=== PATIENT | male | born 1945 | race Caucasian/White ===

== ENCOUNTER 2017-12-27 20:03 | Inpatient (IN) | payer MEDICARE, OTHER ==
--- NOTE | 2017-12-27 21:01 | ED ---
General Adult HPI - General Chief complaint: Nausea/Vomiting/Diarrhea Stated complaint: weakness,NV Time Seen by Provider: 12/27/17 21:00 Source: patient, EMS Mode of arrival: EMS Limitations: no limitations - History of Present Illness Initial comments: Carlton is a 72 yo M who presents to the ED today for evaluation of dizziness, nausea and vomiting. She reports that he was seen at an urgent care last week for similar symptoms, however they were transient and resolved with hydration. He reports that he been doing well throughout the rest the week but around 7 AM today he suddenly felt very dizzy. Patient reports any time he moves his head, he feels like the room is spinning around him. He reports that if he lays flat without moving her symptoms resolve. Patient reports that the dizziness is caused him to become very nauseated have multiple episodes of nonbloody nonbilious emesis. Patient reports a mild headache as well as feeling like his left ear is plugged and his hearing is changed. Patient denies any recent fevers, chills, chest pain, palpitations, shortness of breath. He denies any recent illness including runny stuffy nose or nasal congestion. He does have a history of ear problems for which he has eardrops however hasn't been using recently. Patient has no history of cardiovascular disease. He does have diabetes as well as type or lipidemia but no history of hypertension. - Related Data Home Medications Medication Instructions Recorded Confirmed Atorvastatin [Lipitor] 20 mg PO HS 12/27/17 12/28/17 glipiZIDE [Glucotrol] 10 mg PO HS 12/27/17 12/28/17 metFORMIN HCL [Glucophage] 500 mg PO HS 12/27/17 12/28/17 Allergies Allergy/AdvReac Type Severity Reaction Status Date / Time No Known Allergies Allergy Verified 12/28/17 01:12 Review of Systems ROS Statement: Those systems with pertinent positive or pertinent negative responses have been documented in the HPI. ROS Other: All systems not noted in ROS Statement are negative. Past Medical History Past Medical History: Diabetes Mellitus History of Any Multi-Drug Resistant Organisms: None Reported Past Surgical History: Orthopedic Surgery Past Psychological History: No Psychological Hx Reported Smoking Status: Never smoker Past Alcohol Use History: None Reported Past Drug Use History: None Reported - Past Family History Mother Family Medical History: Congestive Heart Failure (CHF) Father Family Medical History: Dementia General Exam - General Exam Comments Initial Comments: GENERAL: Patient is well-developed and well-nourished. Patient is nontoxic and well- hydrated and is in no distress. HENT: Normocephalic, Atraumatic. Neck is soft and supple. No significant lymphadenopathy is noted. Oropharynx is clear. Moist mucous membranes. Neck has full range of motion without eliciting any pain. EYES: The sclera were anicteric and conjunctiva were pink and moist. Extraocular movements were intact and pupils were equal round and reactive to light. Eyelids were unremarkable. Noted to have left beating nystagmus, worse with head turning PULMONARY: Unlabored respirations. Good breath sounds bilaterally. No audible rales rhonchi or wheezing was noted. CARDIOVASCULAR: There is a regular rate and rhythm without any murmurs gallops or rubs. ABDOMEN: Soft and nontender with normal bowel sounds. SKIN: Skin is clear with no lesions or rashes and otherwise unremarkable. NEUROLOGIC: Patient is alert and oriented x3. Cranial nerves II through XII are grossly intact. Symmetrical smile. Motor and sensory are also intact. Normal speech, volume and content. Normal finger nose, repetative motions and heel day testing. Patient with vertiginous symptoms upon transition from laying to sitting and when turning his head. MUSCULOSKELETAL: Normal extremities with adequate strength and full range of motion. No lower extremity swelling or edema. No calf tenderness. LYMPHATICS: No significant lymphadenopathy is noted PSYCHIATRIC: Normal psychiatric evaluation. Limitations: no limitations Limitations: no limitations Course Vital Signs 12/27/17 12/27/17 12/27/17 20:03 20:11 22:00 Temperature 97.2 F L Pulse Rate 65 79 82 Respiratory 20 18 20 Rate Blood Pressure 154/77 140/86 115/73 O2 Sat by Pulse 99 98 99 Oximetry 12/27/17 12/27/17 12/28/17 23:00 23:32 00:38 Temperature 97 F L Pulse Rate 81 80 74 Respiratory 16 16 16 Rate Blood Pressure 116/72 137/77 117/64 O2 Sat by Pulse 98 95 98 Oximetry Medical Decision Making - Medical Decision Making Patient was seen and evaluated, history is obtained from the patient and at bedside Patient with vertiginous symptoms. Begin transiently last week that resolved. Recurrent today and have been persistent for nearly 12 hours. Symptoms are reproducible with head turning and resolve with lying still. Attempted to ambulate the patient, however he was very unsteady and requiring 2 person assist. At this time I do not feel the patient is stable for discharge home with his elderly . Patient care discussed with Dr. Brown who accepts admission. - Lab Data Result diagrams: 12/27/17 20:28 12/27/17 20:28 Lab Results 12/27/17 12/27/17 12/27/17 Range/Units 20:28 20:28 20:28 WBC 8.7 (3.8-10.6) k/uL RBC 4.94 (4.30-5.90) m/uL Hgb 15.0 (13.0-17.5) gm/dL Hct 43.6 (39.0-53.0) % MCV 88.4 (80.0-100.0) fL MCH 30.3 (25.0-35.0) pg MCHC 34.3 (31.0-37.0) g/dL RDW 12.5 (11.5-15.5) % Plt Count 271 (150-450) k/uL Neutrophils % 90 % Lymphocytes % 5 % Monocytes % 3 % Eosinophils % 0 % Basophils % 0 % Neutrophils # 7.8 H (1.3-7.7) k/uL Lymphocytes # 0.4 L (1.0-4.8) k/uL Monocytes # 0.3 (0-1.0) k/uL Eosinophils # 0.0 (0-0.7) k/uL Basophils # 0.0 (0-0.2) k/uL PT 10.5 (9.0-12.0) sec INR 1.1 (<1.2) Sodium 140 (137-145) mmol/L Potassium 4.3 (3.5-5.1) mmol/L Chloride 103 (98-107) mmol/L Carbon Dioxide 23 (22-30) mmol/L Anion Gap 14 mmol/L BUN 11 (9-20) mg/dL Creatinine 0.60 L (0.66-1.25) mg/dL Est GFR (CKD-EPI)AfAm >90 (>60 ml/min/1.73 sqM) Est GFR (CKD-EPI)NonAf >90 (>60 ml/min/1.73 sqM) Glucose 225 H (74-99) mg/dL Calcium 9.2 (8.4-10.2) mg/dL Magnesium 1.7 (1.6-2.3) mg/dL Total Bilirubin 0.9 (0.2-1.3) mg/dL AST 17 (17-59) U/L ALT 34 (21-72) U/L Alkaline Phosphatase 83 (38-126) U/L Total Protein 7.2 (6.3-8.2) g/dL Albumin 4.3 (3.5-5.0) g/dL Urine Color Urine Appearance (Clear) Urine pH (5.0-8.0) Ur Specific [place] (1.001-1.035) Urine Protein (Negative) Urine Glucose (UA) (Negative) Urine Ketones (Negative) Urine Blood (Negative) Urine Nitrite (Negative) Urine Bilirubin (Negative) Urine Urobilinogen (<2.0) mg/dL Ur Leukocyte Esterase (Negative) 12/27/17 Range/Units 20:28 WBC (3.8-10.6) k/uL RBC (4.30-5.90) m/uL Hgb (13.0-17.5) gm/dL Hct (39.0-53.0) % MCV (80.0-100.0) fL MCH (25.0-35.0) pg MCHC (31.0-37.0) g/dL RDW (11.5-15.5) % Plt Count (150-450) k/uL Neutrophils % % Lymphocytes % % Monocytes % % Eosinophils % % Basophils % % Neutrophils # (1.3-7.7) k/uL Lymphocytes # (1.0-4.8) k/uL Monocytes # (0-1.0) k/uL Eosinophils # (0-0.7) k/uL Basophils # (0-0.2) k/uL PT (9.0-12.0) sec INR (<1.2) Sodium (137-145) mmol/L Potassium (3.5-5.1) mmol/L Chloride (98-107) mmol/L Carbon Dioxide (22-30) mmol/L Anion Gap mmol/L BUN (9-20) mg/dL Creatinine (0.66-1.25) mg/dL Est GFR (CKD-EPI)AfAm (>60 ml/min/1.73 sqM) Est GFR (CKD-EPI)NonAf (>60 ml/min/1.73 sqM) Glucose (74-99) mg/dL Calcium (8.4-10.2) mg/dL Magnesium (1.6-2.3) mg/dL Total Bilirubin (0.2-1.3) mg/dL AST (17-59) U/L ALT (21-72) U/L Alkaline Phosphatase (38-126) U/L Total Protein (6.3-8.2) g/dL Albumin (3.5-5.0) g/dL Urine Color Yellow Urine Appearance Clear (Clear) Urine pH 6.5 (5.0-8.0) Ur Specific [place] 1.027 (1.001-1.035) Urine Protein Trace H (Negative) Urine Glucose (UA) 4+ H (Negative) Urine Ketones 3+ H (Negative) Urine Blood Negative (Negative) Urine Nitrite Negative (Negative) Urine Bilirubin Negative (Negative) Urine Urobilinogen <2.0 (<2.0) mg/dL Ur Leukocyte Esterase Negative (Negative) Disposition Clinical Impression: Vertigo, Nausea and vomiting, Gait instability Disposition[facility] Condition: Stable
[2017-12-27] MEDS ORDERED: MECLIZINE 12.5 MG TAB PO STA (21:16)
[2017-12-27] MEDS ORDERED: ONDANSETRON 4 MG/2 ML VIAL IVP STA (21:16)
[2017-12-27] MEDS ORDERED: SODIUM CHLORIDE 0.9% 1,000 ML IV STA (21:16)
[2017-12-27 21:25] LABS: Appearance,Urine Clear (Clear); Bilirubin,Urine Negative (Negative); Blood,Urine Negative (Negative); Color,Urine Yellow; Glucose,Urine (UA) 4+ (Negative); Leukocyte Esterase,Urine Negative (Negative); Nitrite,Urine Negative (Negative); PH, Urine 6.5 (5.0-8.0); Protein,Urine Trace (Negative); Specific Gravity,Urine 1.027 (1.001-1.035); Urobilinogen,Urine <2.0 mg/dL (<2.0)
[2017-12-27 21:26] LABS: Basophils % (A) 0 %; Eosinophils % (A) 0 %; HCT 43.6 % (39.0-53.0); Lymphocytes # (A) 0.4 k/uL (1.0-4.8); Lymphocytes % (A) 5 %; MCH 30.3 pg (25.0-35.0); MCHC 34.3 g/dL (31.0-37.0); MCV 88.4 fL (80.0-100.0); Mean Platelet Volume 7.3; Monocytes # (A) 0.3 k/uL (0-1.0); Monocytes % (A) 3 %; Neutrophils # (A) 7.8 k/uL (1.3-7.7); Neutrophils % (A) 90 %; Platelet Count 271 k/uL (150-450); RBC 4.94 m/uL (4.30-5.90); RDW 12.5 % (11.5-15.5); WBC 8.7 k/uL (3.8-10.6)
[2017-12-27 21:30] LABS: INR 1.1 (<1.2); Prothrombin Time 10.5 sec (9.0-12.0)
[2017-12-27 21:39] LABS: ALT 34 U/L (21-72); AST 17 U/L (17-59); Albumin 4.3 g/dL (3.5-5.0); Alkaline Phosphatase 83 U/L (38-126); Anion Gap 14 mmol/L; Blood Urea Nitrogen 11 mg/dL (9-20); Calcium 9.2 mg/dL (8.4-10.2); Carbon Dioxide 23 mmol/L (22-30); Chloride 103 mmol/L (98-107); Glucose 225 mg/dL (74-99); Ketones,Urine 3+ (Negative); Magnesium 1.7 mg/dL (1.6-2.3); Potassium 4.3 mmol/L (3.5-5.1); Sodium 140 mmol/L (137-145); Total Bilirubin 0.9 mg/dL (0.2-1.3); Total Protein 7.2 g/dL (6.3-8.2)
--- NOTE | 2017-12-27 22:47 | CT ---
EXAMINATION TYPE: CT brain wo con DATE OF EXAM: 12/27/2017 COMPARISON: Weakness HISTORY: Weakness. CT DLP: 1083.4 mGycm Automated exposure control for dose reduction was used. FINDINGS: There is cerebral cortical atrophy. There is no mass effect nor midline shift. There is no sign of in tracranial hemorrhage. The calvarium is intact. IMPRESSION: CEREBRAL ATROPHY. NO ACUTE INTRACRANIAL ABNORMALITY.
[2017-12-27] MEDS ORDERED: DIAZEPAM 5 MG/ML 2 ML INJ IVP STA (23:19)
[2017-12-28 01:12] LABS: Glucose,Whole Blood 186 mg/dL (75-99)
[2017-12-28] MEDS ORDERED: NALOXONE 0.4 MG/ML 1 ML VIAL IV PRN (06:45)
--- NOTE | 2017-12-28 06:56 | P.HPIM ---
History of Present Illness H&P Date: 12/28/17 Chief Complaint: Vertigo 72-year-old male with history of diabetes mellitus. Patient presented the hospital with complaints of vertigo associated with nausea vomiting. Patient reports the symptoms has started a week ago however it was resolved after going to an urgent care and diagnosed with dehydration. However this morning the patient had experienced ongoing dizziness and room spinning associated with nausea and vomiting several times symptoms persisted all day and he only found relief when he lays down still and closes his eyes. Vomiting is nonbilious nonbloody Patient also feels some fullness in his left ear. This is also associated with some generalized headache. Patient also reported fevers all day but no documented temperature. Otherwise patient denies any trouble breathing or chest pain denies any symptoms of upper respiratory infection denies any runny nose or sore throat denies any abdominal pain changes in his bowel or urinary habits. Denies any GI bleeding denies any other focal neurologic deficits or speech changes. Patient reports that dizziness persisted in the ED despite receiving medications however currently he feels slight improvement Review of Systems Pertinent positives as noted in HPI. All other systems were reviewed and are negative Past Medical History Past Medical History: Diabetes Mellitus, Hyperlipidemia History of Any Multi-Drug Resistant Organisms: None Reported Past Surgical History: Orthopedic Surgery Additional Past Surgical History / Comment(s): left knee surg Past Anesthesia/Blood Transfusion Reactions: No Reported Reaction Smoking Status: Never smoker - Past Family History Mother Family Medical History: Congestive Heart Failure (CHF) Father Family Medical History: Dementia Medications and Allergies Home Medications Medication Instructions Recorded Confirmed Type Atorvastatin [Lipitor] 20 mg PO HS 12/27/17 12/28/17 History glipiZIDE [Glucotrol] 10 mg PO HS 12/27/17 12/28/17 History metFORMIN HCL [Glucophage] 500 mg PO HS 12/27/17 12/28/17 History Allergies Allergy/AdvReac Type Severity Reaction Status Date / Time No Known Allergies Allergy Verified 12/28/17 01:12 Physical Exam Vitals: Vital Signs Temp Pulse Pulse Resp BP BP Pulse Ox 12/28/17 03:51 16 12/28/17 03:38 98.4 F 81 15 118/74 97 12/28/17 01:25 16 12/28/17 01:14 97.9 F 79 16 141/84 97 12/28/17 00:38 74 16 117/64 98 12/27/17 23:32 80 16 137/77 95 12/27/17 23:00 97 F L 81 16 116/72 98 12/27/17 22:00 82 20 115/73 99 12/27/17 20:11 79 18 140/86 98 12/27/17 20:03 97.2 F L 65 20 154/77 99 Intake and Output 12/27/17 12/27/17 12/28/17 14:59 22:59 06:59 Output Total 400 Balance -400 Output: Urine 400 Other: # Voids 1 Weight 90.356 kg 90.3 kg Constitutional: No acute distress, conversant, pleasant, well- developed well-nourished Eyes: Anicteric sclerae, moist conjunctiva, no lid-lag Pupils equal round reactive to light, no nystagmus ENMT: NC/AT Oropharynx clear, no erythema, exudates Neck: Supple, FROM, no masses, or JVD No carotid bruits No thyromegaly Lungs: Clear to auscultation Clear to percussion Normal respiratory effort, no accessory muscle use Cardiovascular: Heart regular in rate and rhythm, Mild systolic murmur, no gallops, or rubs No peripheral edema Abdominal: Soft Nontender, no guarding, rebound or rigidity Abdomen moving with respiration Normoactive bowel sounds No hepatomegaly, No splenomegaly No palpable mass No abdominal wall hernia noted Skin: Normal temperature, tone, texture, turgor No induration No subcutaneous nodules No rash, lesions No ulcers Extremities: No digital cyanosis No clubbing Pedal pulses intact and symmetrical Radial pulses intact and symmetrical No calf tenderness Psychiatric: Alert and oriented to person, place and time Appropriate affect fair judgment Neuro Muscles Strength 5/5 in all 4 extremities Sensation to light touch grossly present throughout Cranial nerves II-XII grossly intact No focal sensory deficits Lymphatics: no palpable cervical or supraclavicular , or inguinal lymph nodes Results CBC & Chem 7: 12/27/17 20:28 12/27/17 20:28 Labs: Abnormal Lab Results - Last 24 Hours (Table) 12/27/17 12/27/17 12/27/17 Range/Units 20:28 20:28 20:28 Neutrophils # 7.8 H (1.3-7.7) k/uL Lymphocytes # 0.4 L (1.0-4.8) k/uL Creatinine 0.60 L (0.66-1.25) mg/dL Glucose 225 H (74-99) mg/dL POC Glucose (mg/dL) (75-99) mg/dL Urine Protein Trace H (Negative) Urine Glucose (UA) 4+ H (Negative) Urine Ketones 3+ H (Negative) 12/28/17 Range/Units 01:10 Neutrophils # (1.3-7.7) k/uL Lymphocytes # (1.0-4.8) k/uL Creatinine (0.66-1.25) mg/dL Glucose (74-99) mg/dL POC Glucose (mg/dL) 186 H (75-99) mg/dL Urine Protein (Negative) Urine Glucose (UA) (Negative) Urine Ketones (Negative) Thrombosis Risk Factor Assmnt - Choose All That Apply Each Risk Factor Represents 2 Points: Age 61-74 years Thrombosis Risk Factor Assessment Total Risk Factor Score: 2 Thrombosis Risk Factor Assessment Level: Low Risk Assessment and Plan Assessment: 72-year-old male with history of diabetes mellitus admitted as an observation with anticipated length of stay of less than 48 hours due to symptoms of vertigo lasting all day. CAT scan of the head showed no acute analyses, EKG showed normal sinus rhythm otherwise labs and vital signs were unremarkable without any fevers. Due to persistence of symptoms patient was admitted for further monitoring and neurologic evaluation. This has never happened before except for transient symptoms last week. Patient denies any recent infections. Plan: Vertigo Computed tomography scan of the head was negative Plan for symptomatic control, symptoms resolved today patient probably could be discharged. However if symptoms are recurrent and probably should consider MRI of the brain to rule out any acoustic neuroma Patient denies any changes in hearing Neurology consult Symptomatic control Neurochecks Diabetes mellitus currently controlled with oral hypoglycemics at home Insulin sliding scale while inpatient DVT prophylaxis Heparin subcu 3 times a day Surrogate decision-maker: *Patient CODE STATUS: Full code Discussed with: Patient, ER, RN Anticipated discharge: <48 hours Anticipated discharge pace: Home A total of 50 minutes was spent on the care of this complex patient more than 50 % of the time was spent in counseling and care coordination.
[2017-12-28] MEDS ORDERED: MECLIZINE 25 MG TAB PO PRN (06:57)
[2017-12-28 07:02] LABS: Glucose,Whole Blood 174 mg/dL (75-99)
[2017-12-28] MEDS: INSULIN ASPART 100 UNIT/ML 1 ML 10 ML VIAL SQ SCH ×4 (09:09→20:22)
[2017-12-28] MEDS: HEPARIN SODIUM,PORCINE 5,000 UNIT/ML 1 ML VIAL SQ SCH ×2 (09:09→17:37)
[2017-12-28] MEDS ORDERED: DIAZEPAM 5 MG TAB PO STA (10:24)
--- NOTE | 2017-12-28 10:24 | P.PN ---
Progress Note - Text Progress Note Date: 12/28/17 Patient seen and examined reports that meclizine is improving his symptoms patient's nausea has subsided, patient worked with physical therapy still has gait instability and reports to be falling to the left. Patient otherwise has no complaints other than headache. Neurology has been consulted, CT of the head of was negative for any acute intracranial pathology only showed cerebral atrophy, patient does have type 2 diabetes and his anemia risk factors for CVA. We'll give a dose of diazepam for his vertigo
[2017-12-28 12:02] LABS: Glucose,Whole Blood 180 mg/dL (75-99)
[2017-12-28 17:18] LABS: Glucose,Whole Blood 219 mg/dL (75-99)
[2017-12-28 20:16] LABS: Glucose,Whole Blood 204 mg/dL (75-99)
[2017-12-28] MEDS: ATORVASTATIN 20 MG TAB PO SCH (20:22)
--- NOTE | 2017-12-28 21:16 | P.CNNES ---
History of Present Illness Consult date: 12/28/17 Reason for Consult: Patient admitted with dizziness and unsteady gait. History of Present Illness: This patient is a 72-year-old right-handed white male who was brought into the emergency room at [facility] yesterday for evaluation of severe dizziness and unsteady gait. Patient states that he was diagnosed with diabetes mellitus about a year ago. He follows with his primary care physician at the NH clinic in [place]. Apparently he is seen there every 3-4 months. Apparently he has been taking oral hypoglycemic agents on a regular basis for the past year. He does not check his blood sugars at all at home and apparently he recently has been having symptoms suggesting possibility of severe hypoglycemic reactions. Patient states that his symptoms became quite bad this past Thursday and he had mentioned this to his . He was feeling very jittery and very dizzy. His symptoms seem to get worse and yesterday he decided to come into the emergency room for further evaluation. He was seen in the ER by Dr. Angulo. He was sent for a computed tomography scan of the brain which revealed cerebral atrophy with no acute intracranial abnormality. He was given a dose of Antivert in the emergency room and was recommended admission to hospital. The patient states that he had 1 previous episode of severe dizziness and possible hypoglycemic reaction about a year ago at which time he was diagnosed with diabetes mellitus. Patient was instructed to follow-up with his physicians at the [facility] in [place] for further management of his diabetes mellitus. Laboratory testing has been ordered and we'll await to see how his hemoglobin A1c blood levels come back. The patient states that at home with quick movements of the head he would feel very dizzy and off balance. He describes the dizziness as true vertigo and spinning sensation. He could not ambulate very well as he was feeling very unsteady with his gait. He denies any recent falls. Even going from a sitting to a standing position he feels lightheaded and dizzy. The patient was admitted to the hospital for further evaluation. He was given some Valium yesterday which did seem to help slightly. Apparently the Antivert that he was given in the ER was most helpful and his symptoms have significantly improved today. The patient denies any diplopia or perioral numbness. He denies any focal weakness. He denies any hearing loss. Dr. López has raised the question of possible acoustic neuroma. He would require a MRI of the internal auditory canal for further evaluation. We will obtain MRI of the brain as well as IAC since Dr. López has braces question. We are recommending the patient should be placed on Antivert 25 mg by mouth twice a day as a scheduled dosage for at least 3-4 weeks. After that time he may gradually be weaned off if symptoms subside significantly. We have described all of these findings and our recommendations today with the patient in detail. As noted his blood sugar in the emergency room on admission was 225. We strongly recommend that he should be monitoring his blood sugars on a regular basis at home and follow-up with his primary care physician upon discharge. This patient's overall prognosis at this time remains very guarded. Review of Systems Constitutional: Denies chills, Denies fever Eyes: denies blurred vision, denies pain Ears, nose, mouth and throat: Denies headache, Denies sore throat Cardiovascular: Denies chest pain, Denies shortness of breath Respiratory: Denies cough Gastrointestinal: Denies abdominal pain, Denies diarrhea, Denies nausea, Denies vomiting Musculoskeletal: Denies myalgias Integumentary: Denies pruritus, Denies rash Neurological: Reports ataxia, Reports confusion, Reports gait dysfunction, Reports paresthesias, Reports vertigo, Denies numbness, Denies weakness Psychiatric: Denies anxiety, Denies depression Endocrine: Denies fatigue, Denies weight change Past Medical History Past Medical History: Diabetes Mellitus History of Any Multi-Drug Resistant Organisms: None Reported Past Surgical History: Orthopedic Surgery Additional Past Surgical History / Comment(s): left knee surg Past Anesthesia/Blood Transfusion Reactions: No Reported Reaction Past Psychological History: No Psychological Hx Reported Smoking Status: Never smoker Past Alcohol Use History: None Reported Past Drug Use History: None Reported - Past Family History Mother Family Medical History: Congestive Heart Failure (CHF) Father Family Medical History: Dementia Medications and Allergies Home Medications Medication Instructions Recorded Confirmed Type Atorvastatin [Lipitor] 20 mg PO HS 12/27/17 12/28/17 History glipiZIDE [Glucotrol] 10 mg PO HS 12/27/17 12/28/17 History metFORMIN HCL [Glucophage] 500 mg PO HS 12/27/17 12/28/17 History Allergies Allergy/AdvReac Type Severity Reaction Status Date / Time No Known Allergies Allergy Verified 12/28/17 13:36 Physical Examination - Vital Signs Vital Signs: Vital Signs Temp Pulse Pulse Resp BP BP BP 12/28/17 15:36 98.5 F 75 18 100/61 12/28/17 11:52 98.3 F 67 18 97/60 12/28/17 07:20 98.3 F 66 18 128/69 12/28/17 03:51 16 12/28/17 03:38 98.4 F 81 15 118/74 12/28/17 01:25 16 12/28/17 01:14 97.9 F 79 16 141/84 12/28/17 00:38 74 16 117/64 12/27/17 23:32 80 16 137/77 12/27/17 23:00 97 F L 81 16 116/72 12/27/17 22:00 82 20 115/73 12/27/17 20:11 79 18 140/86 12/27/17 20:03 97.2 F L 65 20 154/77 Pulse Ox 12/28/17 15:36 98 12/28/17 11:52 96 12/28/17 07:20 97 12/28/17 03:51 12/28/17 03:38 97 12/28/17 01:25 12/28/17 01:14 97 12/28/17 00:38 98 12/27/17 23:32 95 12/27/17 23:00 98 12/27/17 22:00 99 12/27/17 20:11 98 12/27/17 20:03 99 Intake and Output 12/28/17 12/28/17 12/28/17 06:59 14:59 22:59 Intake Total 440 300 Output Total 400 675 Balance -400 440 -375 Intake: Oral 240 300 Other 200 Output: Urine 400 675 Other: Voiding Method Toilet Toilet # Voids 1 Weight 90.3 kg - Constitutional General appearance: average body habitus, cooperative - EENT EENT: PERRL, mucous membranes moist - Respiratory Respiratory: lungs clear, normal breath sounds - Cardiovascular Cardiovascular: regular rate, normal S1, normal S2 Extremities: no peripheral edema bilaterally - Gastrointestinal Gastrointestinal: normoactive bowel sounds - Integumentary Integumentary: normal - Neurologic Speech examination: intact Sensorimotor examination: intact Detailed sensory examination: intact Reflex and gait examination: intact Reflexes: 1+: ankle, bicep, knee, tricep - Musculoskeletal Musculoskeletal: no pain - Psychiatric Psychiatric: mood/affect appropriate, cooperative Results - Laboratory Findings CBC and BMP: 12/27/17 20:28 12/27/17 20:28 Abnormal Lab Findings: Abnormal Labs 12/27/17 12/27/17 12/27/17 20:28 20:28 20:28 Neutrophils # 7.8 H Lymphocytes # 0.4 L Creatinine 0.60 L Glucose 225 H POC Glucose (mg/dL) Urine Protein Trace H Urine Glucose (UA) 4+ H Urine Ketones 3+ H 12/28/17 12/28/17 12/28/17 01:10 07:00 11:58 Neutrophils # Lymphocytes # Creatinine Glucose POC Glucose (mg/dL) 186 H 174 H 180 H Urine Protein Urine Glucose (UA) Urine Ketones 12/28/17 17:15 Neutrophils # Lymphocytes # Creatinine Glucose POC Glucose (mg/dL) 219 H Urine Protein Urine Glucose (UA) Urine Ketones Assessment and Plan (1) Benign paroxysmal positional vertigo Current Visit: Yes Status: Acute Code(s): H81.10 - BENIGN PAROXYSMAL VERTIGO , UNSPECIFIED EAR SNOMED Code(s): 532991783 (2) TIA (transient ischemic attack) Current Visit: Yes Status: Acute Code(s): G45.9 - TRANSIENT CEREBRAL ISCHEMIC ATTACK, UNSPECIFIED SNOMED Code(s): 701559778 (3) Ataxic gait Current Visit: Yes Status: Acute Code(s): R26.0 - ATAXIC GAIT SNOMED Code( s): 17239911 (4) Diabetes mellitus Current Visit: Yes Status: Acute Code(s): E11.9 - TYPE 2 DIABETES MELLITUS WITHOUT COMPLICATIONS SNOMED Code(s): 06503496 Plan: This patient is a 72-year-old male who was admitted to [facility] with symptoms of severe dizziness and unsteady gait. The patient's symptoms began about a week ago and progressively became very severe to the point that he could not walk at home. He also has a history of underlying diabetes mellitus which is not been monitored closely at all. He follows with the NH clinic in [place] every 3-4 months. He does not check his blood sugars routinely at home. He was brought into the emergency room at [facility] for further evaluation. He was seen in the ER by Dr. Angulo and underwent a computed tomography scan of the brain which revealed cerebral atrophy with no acute intracranial abnormality. He was having great deal of unsteady gait and ataxia in the ER and it was decided to admit the patient for further neurological evaluation. Patient states he has no previous history of TIA or strokelike symptoms. He was given Antivert in the emergency room and Valium on the medical floor which did help significantly improve his symptoms of dizziness. His neurological examination at this time is consistent with benign paroxysmal positional vertigo. We have recommended the patient to follow low-sodium diet. We will place the patient on scheduled dose of Antivert 25 mg by mouth twice a day. He is to be scheduled for MRI of the internal auditory canal as Dr. Brown is concerned regarding acoustic neuroma. We will also obtain an MRI of the brain to rule out brainstem stroke. We have recommended the patient to follow-up with his primary care physician at the NH clinic in [place] for further management of his diabetes mellitus. Laboratory testing has been ordered for him during this admission as well which will include his hemoglobin A1c. His overall prognosis at this time remains very guarded. We will continue close neurological follow-up with this patient during this admission. Time with Patient: Greater than 30
[2017-12-29] MEDS: HEPARIN SODIUM,PORCINE 5,000 UNIT/ML 1 ML VIAL SQ SCH ×3 (00:30→17:48)
[2017-12-29 06:52] LABS: Basophils % (A) 1 %; Eosinophils # (A) 0.1 k/uL (0-0.7); Eosinophils % (A) 2 %; HCT 41.7 % (39.0-53.0); HGB 13.6 gm/dL (13.0-17.5); Lymphocytes # (A) 0.8 k/uL (1.0-4.8); Lymphocytes % (A) 11 %; MCH 29.5 pg (25.0-35.0); MCHC 32.7 g/dL (31.0-37.0); MCV 90.4 fL (80.0-100.0); Monocytes # (A) 0.5 k/uL (0-1.0); Monocytes % (A) 7 %; Neutrophils # (A) 5.5 k/uL (1.3-7.7); Neutrophils % (A) 78 %; Platelet Count 255 k/uL (150-450); RBC 4.62 m/uL (4.30-5.90); RDW 12.8 % (11.5-15.5); WBC 7.1 k/uL (3.8-10.6)
[2017-12-29 07:02] LABS: ALT 27 U/L (21-72); AST 15 U/L (17-59); Albumin 3.7 g/dL (3.5-5.0); Alkaline Phosphatase 67 U/L (38-126); Anion Gap 7 mmol/L; Blood Urea Nitrogen 13 mg/dL (9-20); Calcium 9.1 mg/dL (8.4-10.2); Carbon Dioxide 27 mmol/L (22-30); Chloride 104 mmol/L (98-107); Glucose 195 mg/dL (74-99); Potassium 4.2 mmol/L (3.5-5.1); Sodium 138 mmol/L (137-145); Total Bilirubin 0.8 mg/dL (0.2-1.3); Total Protein 6.4 g/dL (6.3-8.2)
[2017-12-29 07:20] LABS: Glucose,Whole Blood 190 mg/dL (75-99)
[2017-12-29] MEDS: INSULIN ASPART 100 UNIT/ML 1 ML 10 ML VIAL SQ SCH ×4 (08:07→20:58)
[2017-12-29] MEDS: MECLIZINE 25 MG TAB PO SCH ×2 (08:08→20:58)
[2017-12-29 11:32] LABS: Hemoglobin A1C 10.8 % (4.0-6.0)
[2017-12-29 12:13] LABS: Glucose,Whole Blood 169 mg/dL (75-99)
--- NOTE | 2017-12-29 13:18 | MR ---
EXAMINATION TYPE: MR brain and iac wo/w con DATE OF EXAM: 12/29/2017 COMPARISON: CT brain 12/27/2017 HISTORY: Dizziness TECHNIQUE: Multiplanar, multisequence images of the brain and brainstem is performed without and with IV contras t, utilizing 10 mL intravenous Gadavist . Small [id number], high-resolution images obtained throug h the internal auditory canals FINDINGS: Diffusion weighted images demonstrate restricted diffusion involving the inferior right cer ebellar hemisphere, there is corresponding increased signal noted on inversion recovery and T2-weight ed sequences, rim enhancement following contrast administration. There is no extra-axial fluid colle ction. The ventricular system and cisternal spaces are normal in size and appearance. The brain vol ume is age appropriate. Midline structures demonstrate normal morphology. There is abnormal signal within the right vertebral artery as compared to the left, flow void is not seen on the right, increased signal is noted within the right vertebral artery following contrast administration, findings suggest thrombosis or embolus involving the right vertebral artery. The dural venous sinuses appear patent. The visualized sinuses are remarkable for inflammatory change, possible polyps within the maxillary sinuses and the globes are intact. IMPRESSION: Findings compatible with subacute infarct involving the inferior right cerebellar hemisph ere, likely posterior inferior cerebellar artery distribution, thrombosis or embolus suspected within the right vertebral artery.
--- NOTE | 2017-12-29 16:13 | P.PN ---
Subjective Progress Note Date: 12/29/17 The patient was seen and evaluated at the bedside. The patient noted that he is feeling well and that his dizziness and spinning sensation have resolved entirely. He further denied any active complaints including weakness, numbness , dizziness, blurred vision, double vision, difficulty speaking, or gait imbalance. Objective - Vital Signs Vital signs: Vital Signs Temp 98.6 F 12/29/17 08:00 Pulse 64 12/29/17 08:00 Resp 18 12/29/17 08:00 BP 143/84 12/29/17 08:00 Pulse Ox 96 12/29/17 08:00 Intake & Output 12/28/17 12/29/17 12/29/17 18:59 06:59 18:59 Intake Total 740 440 Output Total 675 400 450 Balance 65 -400 -10 Intake: Oral 540 440 Other 200 Output: Urine 675 400 450 Other: Voiding Method Toilet Toilet Toilet # Voids 1 - Exam General: Awake, alert, in NAD, appears of stated age Derm: warm, dry Head: atraumatic, normocephalic, symmetric Eyes: EOMI, no lid lag, anicteric sclera Mouth: mucus membranes moist Cardiovascular: S1S2 reg, no murmur, rubs, or gallops Lungs: CTA bilateral, no rhonchi, no rales, no accessory muscle use Abdominal: soft, nontender to palpation, no guarding or rigidity, no appreciable organomegaly Ext: no edema, no contractures Neuro: Strength 5/5 throughout, CN II-XII grossly intact, gait normal, no focal neuro deficits Psych: AAOx3, appropriate affect - Labs CBC & Chem 7: 12/29/17 06:17 12/29/17 06:17 Labs: Abnormal Lab Results - Last 24 Hours (Table) 12/27/17 12/28/17 12/28/17 Range/Units 20:28 17:15 20:12 Lymphocytes # (1.0-4.8) k/uL Glucose (74-99) mg/dL POC Glucose (mg/dL) 219 H 204 H (75-99) mg/dL Hemoglobin A1c 10.8 H (4.0-6.0) % AST (17-59) U/L 12/29/17 12/29/17 12/29/17 Range/Units 06:17 06:17 07:15 Lymphocytes # 0.8 L (1.0-4.8) k/uL Glucose 195 H (74-99) mg/dL POC Glucose (mg/dL) 190 H (75-99) mg/dL Hemoglobin A1c (4.0-6.0) % AST 15 L (17-59) U/L 12/29/17 Range/Units 12:11 Lymphocytes # (1.0-4.8) k/uL Glucose (74-99) mg/dL POC Glucose (mg/dL) 169 H (75-99) mg/dL Hemoglobin A1c (4.0-6.0) % AST (17-59) U/L Assessment and Plan Plan: Vertigo likely secondary to 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
[2017-12-29] MEDS ORDERED: CALCIUM CARBONATE 500 MG CHEWABLE PO PRN (17:14)
[2017-12-29 17:29] LABS: Glucose,Whole Blood 184 mg/dL (75-99)
[2017-12-29] MEDS: ASPIRIN 81 MG PO SCH (17:48)
[2017-12-29 20:04] LABS: Glucose,Whole Blood 250 mg/dL (75-99)
[2017-12-29] MEDS: INSULIN DETEMIR 100 UNIT/ML 10 ML VIAL SQ SCH (20:58)
[2017-12-29] MEDS: ATORVASTATIN 20 MG TAB PO SCH (20:58)
--- NOTE | 2017-12-29 22:45 | CT ---
EXAMINATION TYPE: CT angio head neck with contrast and with 3-D reconstruction renderings. DATE OF EXAM: 12/29/2017 HISTORY: Patient complains of vertigo. COMPARISON: CT 12/27/2017; MRI brain 12/29/2017 CT DLP: 349.5 mGycm. Automated Exposure Control for Dose Reduction was Utilized. TECHNIQUE: CTA scan of the neck is performed with IV Contrast, patient injected with 65 mL of Isovue 370, axial images are obtained, coronal and sagittal reformatted images are reviewed. Three-D recons tructed images are created on an independent workstation and reviewed. Neck CTA Findings: Origins of the great vessels at the aortic arch are widely patent. The CCA and ECA are bilaterally widely patent throughout their cervical extents, without significant focal stenosis or other focal finding. The ENID origin, however, shows a borderline-significant hard plaque stenosis; remainder of ENID is widely patent. LICA origin and remainder of its extent is widel y patent. The vertebral artery systems are bilaterally widely patent throughout their cervical extent, with the exception of the right vertebral artery which does not contrast opacify from the level of the C1 arc h to the expected site of the right vertebrobasilar junction. Throughout the neck, the left vertebral artery has approximately 2-3X the caliber of the right vertebral artery; consistent with congenital variant anatomy. Incidental findings: None. Brain CTA Findings: Again, the right vertebral artery does not opacify from the level of the C1 arch to the expected site of the right vertebrobasilar junction. The remainder of the posterior circulati on is widely patent, without significant stenosis and without focal aneurysm. The anterior circulatio n is bilaterally widely patent without significant stenosis and without focal aneurysm. Incidental Findings: The previously noted right cerebellar subacute nonhemorrhagic infarction is rede monstrated. No additional intra-axial or extra-axial findings. IMPRESSION: 1. OCCLUDED DISTAL RIGHT VERTEBRAL ARTERY, WITH RIGHT CEREBELLAR NONHEMORRHAGIC INFARCTION. 2. ENID ORIGIN STENOSIS NOTED, BORDERLINE FLOW-LIMITING.
[2017-12-30] MEDS: HEPARIN SODIUM,PORCINE 5,000 UNIT/ML 1 ML VIAL SQ SCH ×3 (00:19→16:48)
[2017-12-30 06:41] LABS: Glucose,Whole Blood 173 mg/dL (75-99)
[2017-12-30] MEDS: INSULIN ASPART 100 UNIT/ML 1 ML 10 ML VIAL SQ SCH ×4 (08:08→22:11)
[2017-12-30] MEDS: MECLIZINE 25 MG TAB PO SCH (08:08)
[2017-12-30] MEDS: ASPIRIN 81 MG PO SCH (08:08)
--- NOTE | 2017-12-30 11:06 | ECHOF ---
Referral Reason:CVA w/u MEASUREMENTS -------- HEIGHT: 157.5 cm WEIGHT: 90.3 kg BP: 143/81 RVIDd: 2.3 cm (< 3.3) IVSd: 1.3 cm (0.6 - 1.1) LVIDd: 4.6 cm (3.9 - 5.3) LVPWd: 1.5 cm (0.6 - 1.1) IVSs: 1.5 cm LVIDs: 3.7 cm LVPWs: 1.6 cm LA Diam: 3.5 cm (2.7 - 3.8) Ao Diam: 2.9 cm (2.0 - 3.7) AV Cusp: 1.7 cm (1.5 - 2.6) LA Diam: 4.1 cm (2.7 - 3.8) MV EXCURSION: 19.089 mm (> 18.000) MV EF SLOPE: 104 mm/s (70 - 150) EPSS: 0.3 cm MV E Darinel: 0.89 m/s MV DecT: 259 ms MV A Darinel: 1.21 m/s MV E/A Ratio: 0.74 RAP: 5.00 mmHg RVSP: 19.30 mmHg FINDINGS -------- Sinus rhythm. This was a technically adequate study. The left ventricular size is normal. There is mild concentric left ventricular hypertrophy. Overa ll left ventricular systolic function is normal with, an EF between 55 - 60 %. The right ventricle is normal in size. The left atrial size is normal. Normal LA size by volume 22+/-6 ml/m2. The right atrial size is normal. There is mild aortic valve sclerosis. There is no evidence of aortic regurgitation. Mild mitral annular calcification present. Mild mitral regurgitation is present. Mild tricuspid regurgitation present. There is no evidence of pulmonary hypertension. The right v entricular systolic pressure, as measured by Doppler, is 19.30mmHg. Trace/mild (physiologic) pulmonic regurgitation. The aortic root size is normal. There is no pericardial effusion. CONCLUSIONS -------- 1. The left ventricular size is normal. 2. There is mild concentric left ventricular hypertrophy. 3. Overall left ventricular systolic function is normal with, an EF between 55 - 60 %. 4. The right ventricle is normal in size. 5. The left atrial size is normal. 6. The right atrial size is normal. 7. There is mild aortic valve sclerosis. 8. Mild mitral annular calcification present. 9. Mild mitral regurgitation is present. 10. Mild tricuspid regurgitation present. 11. There is no evidence of pulmonary hypertension. 12. The right ventricular systolic pressure, as measured by Doppler, is 19.30mmHg. 13. Trace/mild (physiologic) pulmonic regurgitation. 14. The aortic root size is normal. 15. There is no pericardial effusion. FIELD INTERVIEWER: Rachael Dolan RDCS
[2017-12-30 12:15] LABS: Glucose,Whole Blood 166 mg/dL (75-99)
[2017-12-30 17:28] LABS: Glucose,Whole Blood 203 mg/dL (75-99)
--- NOTE | 2017-12-30 19:01 | P.PN ---
Subjective Progress Note Date: 12/30/17 The patient was seen and evaluated at the bedside. The patient continues to feel well and is asymptomatic. He is able to ambulate without assistance. He further denied any active complaints including weakness, numbness, dizziness, blurred vision, double vision, difficulty speaking, or gait imbalance. Objective - Vital Signs Vital signs: Vital Signs Temp 97.3 F L 12/30/17 17:19 Pulse 72 12/30/17 17:19 Resp 18 12/30/17 17:19 BP 139/84 12/30/17 17:19 Pulse Ox 95 12/30/17 17:19 Intake & Output 12/29/17 12/30/17 12/30/17 18:59 06:59 18:59 Intake Total 640 540 Output Total 450 450 Balance 190 90 Weight 89 kg Intake: Oral 640 540 Output: Urine 450 450 Other: Voiding Method Toilet Toilet Toilet Urinal # Voids 1 1 0 - Exam General: Awake, alert, in NAD, appears of stated age Derm: warm, dry Head: atraumatic, normocephalic, symmetric Eyes: EOMI, no lid lag, anicteric sclera Mouth: mucus membranes moist Cardiovascular: S1S2 reg, no murmur, rubs, or gallops Lungs: CTA bilateral, no rhonchi, no rales, no accessory muscle use Abdominal: soft, nontender to palpation, no guarding or rigidity, no appreciable organomegaly Ext: no edema, no contractures Neuro: Strength 5/5 throughout, CN II-XII grossly intact, gait normal, no focal neuro deficits Psych: AAOx3, appropriate affect - Labs CBC & Chem 7: 12/29/17 06:17 12/29/17 06:17 Labs: Abnormal Lab Results - Last 24 Hours (Table) 12/29/17 12/30/17 12/30/17 Range/Units 19:59 06:39 12:10 POC Glucose (mg/dL) 250 H 173 H 166 H (75-99) mg/dL 12/30/17 Range/Units 17:05 POC Glucose (mg/dL) 203 H (75-99) mg/dL Assessment and Plan Plan: Vertigo likely secondary to subacute CVA involving R cerebellum w/ occluded R vertebral artery - Neurology consulted - C/w Aspirin 81 mg qd - Echocardiogram unremarkable. CTA w/ ENID stenosis and R vertebral artery occlusion - Consult PT/OT Uncontrolled Diabetes mellitus w/ hyperglycemia - C/w Levemir 10 U and c/w insulin sliding scale Time with Patient: Greater than 30
[2017-12-30 20:56] LABS: Glucose,Whole Blood 182 mg/dL (75-99)
[2017-12-30] MEDS: ATORVASTATIN 20 MG TAB PO SCH (22:11)
[2017-12-31] MEDS: INSULIN DETEMIR 100 UNIT/ML 10 ML VIAL SQ SCH (00:01)
[2017-12-31] MEDS: MECLIZINE 25 MG TAB PO SCH ×2 (00:01→09:18)
[2017-12-31 06:17] LABS: Glucose,Whole Blood 198 mg/dL (75-99)
[2017-12-31] MEDS: INSULIN ASPART 100 UNIT/ML 1 ML 10 ML VIAL SQ SCH ×2 (06:54→12:23)
[2017-12-31 09:14] VITALS: RESP 16; TEMP 96.9
[2017-12-31] MEDS: HEPARIN SODIUM,PORCINE 5,000 UNIT/ML 1 ML VIAL SQ SCH ×2 (09:17)
[2017-12-31] MEDS: ASPIRIN 81 MG PO SCH (09:18)
[2017-12-31 12:00] LABS: Glucose,Whole Blood 236 mg/dL (75-99)
[2017-12-31 12:04] VITALS: BP 119/74; PULSE 88
--- NOTE | 2017-12-31 14:04 | P.DS ---
Providers Date of admission: 12/29/17 15:58 Expected date of discharge: 12/31/17 Attending physician: Kamla Brown MD Consults: 12/28/17 06:47 Consult Physician Routine Consulting Provider: Josee Barber Consult Reason/Comments: vertigo, nausea, vomiting Do you want consulting provider notified?: Yes Primary care physician: Stated None Hospital Course: The patient is a 72-year-old male with a past medical history of diabetes mellitus and hyperlipidemia who presented to the ED with chief complaint of vertigo with nausea and vomiting ongoing for about a week. The patient underwent CT head which showed cerebral atrophy but otherwise unremarkable. The patient was admitted for workup of vertigo with suspected acoustic neuroma versus CVA. Neurology was consulted and an MRI was performed which showed subacute CVA involving R cerebellar region. CTA head and neck subsequently showed occlusion of the right vertebral artery with stenosis of right inferior cerebellar artery. Echocardiogram was unremarkable. The patient's symptoms gradually improved and presently he is able to ambulate with walker (baseline: walked without assistance) and notes that his vertigo has resolved entirely. The patient was evaluated by Speech and PT/OT. Patient was also found to have poorly controlled diabetes mellitus for which she was started on basal insulin. He is presently stable and ready for discharge home with home PT and home health services. General: Awake, alert, in no acute distress HEENT: NC/AT, anicteric sclerae, moist conjunctiva, no lid-lag, PERRLA, oropharynx clear, no erythema, exudates Cardiovascular: S1/S2 wnl, no murmurs, rubs, or gallops Lungs: Clear to auscultation, normal respiratory effort, no accessory muscle use Abdominal: Soft, nontender, non-distended, no guarding, rebound, or rigidity, normoactive bowel sounds Skin: Warm, dry Extremities: No edema or contractures Psychiatric: Alert and oriented to person, place and time, appropriate affect, Intact judgment Neuro: Strength 5/5 throughout, CN II-XI grossly intact, sensation intact throughout, no focal sensory deficits, gait mildly ataxic, ambulating w/ walker Pertinent Studies: Head CT w/o contrast - Cerebral atrophy. Otherwise no acute intracranial patology noted. Brain MRI - findings compatible with subacute infarct involving the inferior right cerebellar hemisphere, likely posterior inferior cerebellar artery distribution, thrombosis or embolus suspected within the right vertebral artery. CT Angiogram head and neck - occluded distal right vertebral artery, with right cerebellar nonhemorrhagic infarction. Right inferior cerebellar artery origin stenosis noted, borderline flow limiting. Echocardiogram - LVEF 55-60%. Mild concentric LVH. Procedures: None Patient Condition at Discharge: Stable Plan - Discharge Summary New Discharge Prescriptions: New Aspirin 81 mg PO DAILY #30 chew Atorvastatin [Lipitor] 40 mg PO HS #30 tab Insulin Detemir [Levemir Flextouch] 10 units SQ HS #5 pen Continue glipiZIDE [Glucotrol] 10 mg PO HS #30 tablet Changed metFORMIN HCL [Glucophage] 500 mg PO BID #60 tab Discontinued Atorvastatin [Lipitor] 20 mg PO HS Discharge Medication List Aspirin 81 mg PO DAILY #30 chew 12/31/17 [Rx] Atorvastatin [Lipitor] 40 mg PO HS #30 tab 12/31/17 [Rx] Insulin Detemir [Levemir Flextouch] 10 units SQ HS #5 pen 12/31/17 [Rx] glipiZIDE [Glucotrol] 10 mg PO HS #30 tablet 12/31/17 [Rx] metFORMIN HCL [Glucophage] 500 mg PO BID #60 tab 12/31/17 [Rx] Follow up Appointment(s)/Referral(s): None,Stated [Primary Care Provider] - 1-2 days Josee Barber MD [STAFF PHYSICIAN] - 1 Week Discharge Disposition: HOME WITH HOME HEALTH SERVICES
[2017-12-31 14:28] VITALS: BMI 27.3
[2017-12-31] MEDS ORDERED: ATORVASTATIN 40 MG TAB PO SCH (21:00)
== END 2017-12-31 15:36 | disposition home or self-care (01) | DRG 66 ==
LOC: EC 20:03 → 3OBS 12-28 00:04 → OBSVTOIN 12-29 15:58 → 6SEL 12-30 16:53
PROVIDERS: ADMIT Internal Medicine; ATTEND Internal Medicine
DX: I63.541 Cerebral infarction due to unspecified occlusion or stenosis of right cerebellar artery (principal); E11.65 Type 2 diabetes mellitus with hyperglycemia; I65.01 Occlusion and stenosis of right vertebral artery; I65.21 Occlusion and stenosis of right carotid artery; H81.10 Benign paroxysmal vertigo, unspecified ear; R40.2362 Coma scale, best motor response, obeys commands, at arrival to emergency department; R40.2142 Coma scale, eyes open, spontaneous, at arrival to emergency department; R40.2252 Coma scale, best verbal response, oriented, at arrival to emergency department; R26.0 Ataxic gait; E78.5 Hyperlipidemia, unspecified; Z79.84 Long term (current) use of oral hypoglycemic drugs; Z79.899 Other long term (current) drug therapy; Z82.49 Family history of ischemic heart disease and other diseases of the circulatory system; Z82.0 Family history of epilepsy and other diseases of the nervous system
CPT/HCPCS: 36415; 70450; 70496; 70498; 70553; 80053; 81003; 83036; 83735; 85025; 85610; 93005; 93306; 95816; 96361; 96374; 96375; 99285